=== PATIENT | female | born 2000 | race Caucasian/White ===

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

== ENCOUNTER 2022-07-06 18:21 | Emergency (ER) | payer OTHER ==
[2022-07-06 18:38] VITALS: BP 121/73; PULSE 90; RESP 18; TEMP 98.1; BMI 22.2
== END 2022-07-07 00:34 | disposition home or self-care (01) ==
LOC: JER 18:21
DX: B34.9 Viral infection, unspecified (principal)
CPT/HCPCS: 0241U-QW; 99283-25